=== PATIENT | male | born 1985 | race Caucasian/White ===

== ENCOUNTER 2016-11-19 16:49 | Emergency (ER) | payer SELFPAY ==
--- NOTE | 2016-11-19 19:55 | ED CLINICAL REPORT ---
Clinical Report - Physicians/Mid Levels [facility] [address] [place] [address] 11/19/2016 16:52 Patient: VALENTIN DOMINIQUE JR Time Seen: 17:10. Arrived- By private vehicle. Historian- patient. HISTORY OF PRESENT ILLNESS Chief Complaint: LOWER EXTREMITY PAIN. Severity is described as being .it has become recently worse. The quality is noted to be aching, "pain" and similar to prior episodes. This started several days ago. It was abrupt in onset and has been constant. Symptoms located in the area of the right leg. The patient has had redness and swelling. Patient denies a recent injury. Similar symptoms previously: Many times. Diagnosis: deep vein thrombosis (pulmonary embolism). ( Factor V Leiden deficiency). REVIEW OF SYSTEMS No chills, fever, sweats, chest pain or cough. No difficulty breathing, palpitations, abdominal pain, constipation or diarrhea. No nausea, vomiting or urinary problems. All systems otherwise negative, except as recorded above. PAST HISTORY Problems: DVT - Deep Venous Thrombosis. Pulmonary Embolism. Asthma. Factor V Leiden mutation. Additional Surgeries: Adenoidectomy. Appendectomy. IVC Filter. Tonsillectomy. Tympanostomy Tubes. Medications: None. Allergies: Dilaudid. ("ONLY the tablet form") Penicillins. SOCIAL HISTORY Current every day heavy tobacco smoker (cigarette)- less than 1 pack per day. Occasional alcohol use. History of drug use: marijuana. FAMILY HISTORY Denies family medical history. ADDITIONAL NOTES The nursing notes have been reviewed. PHYSICAL EXAM Vital Signs: 11/19/2016 17:01 BP: 125/72. HR: 66. RR: 16. O2 saturation: 98%. Temp: 98.1 F. Have been reviewed. Appearance: Alert. Eyes: Pupils equal, round and reactive to light. ENT: Pharynx normal. Neck: Neck supple. CVS: Normal heart rate and rhythm. Heart sounds normal. Respiratory: No respiratory distress. Breath sounds normal. Abdomen: Soft and nontender. No organomegaly. Extremities: Right leg: mild swelling. Bilateral mild pitting edema of the lower extremities involving both feet, both ankles and both lower legs. Moderate right-sided calf tenderness. LABS, X-RAYS, AND EKG Lower Extremity Sonography: R LE occluded tibial veins extending up to but sparing the popliteal vein. LLE femoral vein scarring - chronic with L popliteal residual clot. Laboratory Tests: CBC w Diff: (DERICK: 11/19/2016 17:30) ( [facility] 11/19/2016 17:39) Final results Test Result Flag Units (Reference) WHITE BLOOD COUNT 9.7 K/uL (4.5-11.5) RED BLOOD COUNT 5.15 M/uL (4.50-5.90) HEMOGLOBIN 15.2 gm/dL (13.5-17.5) HEMATOCRIT 45.7 % (41.0-53.0) MEAN CELL VOLUME 89 fL (80-100) MEAN CORPUSCULAR HGB 30 pg (26-34) MEAN CORPUSCULAR HGB CONC 33 g/dL (31-37) RED CELL DISTRIBUTION WIDTH 13.3 % (11.6-14.8) PLATELET COUNT 201 K/uL (150-400) LYMPH % 26.5 % (25-40) MONO % 3.4 % (3-14) GRANULOCYTE % 70.1 PT with INR: (DERICK: 11/19/2016 17:30) ( [facility] 11/19/2016 17:51) Final results Test Result Flag Units (Reference) INR 0.9 (0.8-1.2) Low Intensity Therapy: INR 1.5-2.0 PT range 18.5-23.1Mod.Intensity Therapy: INR 2.0-3.0 PT range 23.1-31.5High Intensity Therapy: INR 2.5-3.5 PT range 27.4-35.5High Intensity Therapy 2: INR 3.0-4.0 PT range 31.5-39.3 APTT 26 SECONDS (24-34) CMP: (DERICK: 11/19/2016 17:30) ( [facility] 11/19/2016 17:55) Final results Test Result Flag Units (Reference) GLUCOSE 110 mg/dL (70-110) BUN 11 mg/dL (7-18) CREATININE 1.0 mg/dL (0.6-1.3) Estimated GFR >60 mL/min Estimated GFR- >60 mL/min Note: Persistent reduction over 3 months in eGFR<60 mL/min/1.73 m2 defines CKD. Patients with eGFR values>=60 mL/min/1.73 m2 may also have CKD if evidence ofpersistent proteinuria. Additional information may be foundat www.kidney.org. SODIUM 144 mmol/L (136-145) POTASSIUM 3.8 mmol/L (3.5-5.1) CHLORIDE 109 H mmol/L (98-107) CARBON DIOXIDE 26 mmol/L (21-32) CALCIUM 8.5 mg/dL (8.5-10.1) TOTAL PROTEIN 7.0 g/dL (6.4-8.2) ALBUMIN 3.7 g/dL (3.3-5.0) BILIRUBIN, TOTAL 1.1 H mg/dL (0.0-1.0) ALKALINE PHOSPHATASE 61 U/L (46-116) AST (SGOT) 17 U/L (15-37) ALT (SGPT) 41 U/L (12-78) LIPASE 129 U/L (73-393) AMYLASE 29 U/L (25-115) . PROGRESS AND PROCEDURES Course of Care: Patient is stable. Consult obtained. Dr. Hutson the on-call doc at the [facility]. We reviewed the patient's history and physical examination findings. She says that their office will contact him on Monday and make arrangements for his follow-up both with a primary care provider and at the anticoagulation clinic. Case discussed. Phone consult only. Patient/family counseled. Old medical records ordered. Old records unavailable. Disposition: Discharged. Condition: stable. CLINICAL IMPRESSION Acute and chronic deep venous thrombosis of the right lower extremity and left lower extremity. INSTRUCTIONS No driving or operating machinery while taking medication. Sedative medication was given during your visit. (You should receive a call from Dr. Perez's office on Monday to schedule follow-up. If you have not heard from them by early afternoon, please call them at the following number: Hung Perez MD [facility] [place] [phone]). Warnings: Further evaluation is necessary. GENERAL WARNINGS: Return or contact your physician immediately if your condition worsens or changes unexpectedly, if not improving as expected, or if other problems arise. Prescription Medications: Hydrocodone/APAP 5mg / 325mg: take 1-2 orally every 6 hours as needed for pain. Dispense ten (10). No refill. Lovenox 120 mg SQ. Administer every 12 hours for 5 days. Dispense nine (9) pre-filled syringes. No refills. Coumadin 5 mg: take 1 tablet orally every 24 hours. Dispense five (5). No refills. Substitution is permissible. Follow-up: Follow up with your doctor Dr. Ana Cordon. Understanding of the discharge instructions verbalized by patient. (Electronically signed by Carson Baires MD 11/19/2016 21:59)
--- NOTE | 2016-11-19 19:55 | ED CLINICAL REPORT ---
Clinical Report - Physicians/Mid Levels [facility] [address] [place] [address] 11/19/2016 16:52 Patient: VALENTIN DOMINIQUE JR Time Seen: 17:10. Arrived- By private vehicle. Historian- patient. HISTORY OF PRESENT ILLNESS Chief Complaint: LOWER EXTREMITY PAIN. Severity is described as being .it has become recently worse. The quality is noted to be aching, "pain" and similar to prior episodes. This started several days ago. It was abrupt in onset and has been constant. Symptoms located in the area of the right leg. The patient has had redness and swelling. Patient denies a recent injury. Similar symptoms previously: Many times. Diagnosis: deep vein thrombosis (pulmonary embolism). ( Factor V Leiden deficiency). REVIEW OF SYSTEMS No chills, fever, sweats, chest pain or cough. No difficulty breathing, palpitations, abdominal pain, constipation or diarrhea. No nausea, vomiting or urinary problems. All systems otherwise negative, except as recorded above. PAST HISTORY Problems: DVT - Deep Venous Thrombosis. Pulmonary Embolism. Asthma. Factor V Leiden mutation. Additional Surgeries: Adenoidectomy. Appendectomy. IVC Filter. Tonsillectomy. Tympanostomy Tubes. Medications: None. Allergies: Dilaudid. ("ONLY the tablet form") Penicillins. SOCIAL HISTORY Current every day heavy tobacco smoker (cigarette)- less than 1 pack per day. Occasional alcohol use. History of drug use: marijuana. FAMILY HISTORY Denies family medical history. ADDITIONAL NOTES The nursing notes have been reviewed. PHYSICAL EXAM Vital Signs: 11/19/2016 17:01 BP: 125/72. HR: 66. RR: 16. O2 saturation: 98%. Temp: 98.1 F. Have been reviewed. Appearance: Alert. Eyes: Pupils equal, round and reactive to light. ENT: Pharynx normal. Neck: Neck supple. CVS: Normal heart rate and rhythm. Heart sounds normal. Respiratory: No respiratory distress. Breath sounds normal. Abdomen: Soft and nontender. No organomegaly. Extremities: Right leg: mild swelling. Bilateral mild pitting edema of the lower extremities involving both feet, both ankles and both lower legs. Moderate right-sided calf tenderness. LABS, X-RAYS, AND EKG Lower Extremity Sonography: R LE occluded tibial veins extending up to but sparing the popliteal vein. LLE femoral vein scarring - chronic with L popliteal residual clot. Laboratory Tests: CBC w Diff: (DERICK: 11/19/2016 17:30) ( [facility] 11/19/2016 17:39) Final results Test Result Flag Units (Reference) WHITE BLOOD COUNT 9.7 K/uL (4.5-11.5) RED BLOOD COUNT 5.15 M/uL (4.50-5.90) HEMOGLOBIN 15.2 gm/dL (13.5-17.5) HEMATOCRIT 45.7 % (41.0-53.0) MEAN CELL VOLUME 89 fL (80-100) MEAN CORPUSCULAR HGB 30 pg (26-34) MEAN CORPUSCULAR HGB CONC 33 g/dL (31-37) RED CELL DISTRIBUTION WIDTH 13.3 % (11.6-14.8) PLATELET COUNT 201 K/uL (150-400) LYMPH % 26.5 % (25-40) MONO % 3.4 % (3-14) GRANULOCYTE % 70.1 PT with INR: (DERICK: 11/19/2016 17:30) ( [facility] 11/19/2016 17:51) Final results Test Result Flag Units (Reference) INR 0.9 (0.8-1.2) Low Intensity Therapy: INR 1.5-2.0 PT range 18.5-23.1Mod.Intensity Therapy: INR 2.0-3.0 PT range 23.1-31.5High Intensity Therapy: INR 2.5-3.5 PT range 27.4-35.5High Intensity Therapy 2: INR 3.0-4.0 PT range 31.5-39.3 APTT 26 SECONDS (24-34) CMP: (DERICK: 11/19/2016 17:30) ( [facility] 11/19/2016 17:55) Final results Test Result Flag Units (Reference) GLUCOSE 110 mg/dL (70-110) BUN 11 mg/dL (7-18) CREATININE 1.0 mg/dL (0.6-1.3) Estimated GFR >60 mL/min Estimated GFR- >60 mL/min Note: Persistent reduction over 3 months in eGFR<60 mL/min/1.73 m2 defines CKD. Patients with eGFR values>=60 mL/min/1.73 m2 may also have CKD if evidence ofpersistent proteinuria. Additional information may be foundat www.kidney.org. SODIUM 144 mmol/L (136-145) POTASSIUM 3.8 mmol/L (3.5-5.1) CHLORIDE 109 H mmol/L (98-107) CARBON DIOXIDE 26 mmol/L (21-32) CALCIUM 8.5 mg/dL (8.5-10.1) TOTAL PROTEIN 7.0 g/dL (6.4-8.2) ALBUMIN 3.7 g/dL (3.3-5.0) BILIRUBIN, TOTAL 1.1 H mg/dL (0.0-1.0) ALKALINE PHOSPHATASE 61 U/L (46-116) AST (SGOT) 17 U/L (15-37) ALT (SGPT) 41 U/L (12-78) LIPASE 129 U/L (73-393) AMYLASE 29 U/L (25-115) . PROGRESS AND PROCEDURES Course of Care: Patient is stable. Consult obtained. Dr. Hutson the on-call doc at the [facility]. We reviewed the patient's history and physical examination findings. She says that their office will contact him on Monday and make arrangements for his follow-up both with a primary care provider and at the anticoagulation clinic. Case discussed. Phone consult only. Patient/family counseled. Old medical records ordered. Old records unavailable. Disposition: Discharged. Condition: stable. CLINICAL IMPRESSION Acute and chronic deep venous thrombosis of the right lower extremity and left lower extremity. INSTRUCTIONS No driving or operating machinery while taking medication. Sedative medication was given during your visit. (You should receive a call from Dr. Perez's office on Monday to schedule follow-up. If you have not heard from them by early afternoon, please call them at the following number: Hung Perez MD [facility] [place] [phone]). Warnings: Further evaluation is necessary. GENERAL WARNINGS: Return or contact your physician immediately if your condition worsens or changes unexpectedly, if not improving as expected, or if other problems arise. Prescription Medications: Hydrocodone/APAP 5mg / 325mg: take 1-2 orally every 6 hours as needed for pain. Dispense ten (10). No refill. Lovenox 120 mg SQ. Administer every 12 hours for 5 days. Dispense nine (9) pre-filled syringes. No refills. Coumadin 5 mg: take 1 tablet orally every 24 hours. Dispense five (5). No refills. Substitution is permissible. Follow-up: Follow up with your doctor Dr. Ana Cordon. Understanding of the discharge instructions verbalized by patient. (Electronically signed by Carson Baires MD 11/19/2016 21:59)
--- NOTE | 2016-11-19 19:55 | ED ORDER SUMMARY ---
..... Patient: VALENTIN DOMINIQUE JR OrderSheet [facility] VisitID: [id number] [place] [address] 31y, M Registration Date/Time: 11/19/2016 ORDER SHEET Weight: 117.9 kg (stated) Allergies: Penicillins, Dilaudid GENERAL ORDERS: US Venous Bilat Urgent (17:11 11/19/2016 Vasile WHEATLEY) (Ack 17:13 Savana) (19:47 Elizabeth) CBC w Diff Urgent (17:11 11/19/2016 Vasile WHEATLEY) (Ack 17:13 Svaana) (17:33 MWinterer R.N.) CMP Urgent (17:11/19/2016 Vasile WHEATLEY) (Ack 17:13 Savana) (17:33 MWinterer R.N.) PT with INR Urgent (17:11 11/19/2016 Vasile WHEATLEY) (Ack 17:13 Savana) (17:33 MWinterer R.N.) PTT Urgent (17:11/19/2016 Vasile WHEATLEY) (Ack 17:13 Savana) (17:33 MWinterer R.N.) Amylase Urgent (17:11 11/19/2016 Vasile WHEATLEY) (Ack 17:13 Savana) (17:33 MWinterer R.N.) Lipase Urgent (17:11/19/2016 Vasile WHEATLEY) (Ack 17:13 Savana) (17:33 MWinterer R.N.) MEDICATION ORDERS: Ultram PO 100 mg (NOW) (18:23 11/19/2016 Vasile WHEATLEY) (Ack 18:26 SReitz R.N.) (18:29 KWilliams R.N.) Lovenox Subcut 120 mg (HIGH ALERT MEDICATION, NOW) (19:48 11/19/2016 Vasile WHEATLEY) (Ack 19:52 HSoule) (Cancelled: Patient [id number] HSoule) IV FLUIDS: IV Saline Lock (17:11 11/19/2016 Vasile WHEATLEY) (Ack 17:32 MWinterer R.N.) (17:38 KWilliams R.N.) ORDER SHEET NOTES: [Electronically signed by Dea Flynn (20:35 11/19/2016)] [Electronically signed by Carson Baires MD (21:59 11/19/2016)] [Electronically locked/signed by Dea Flynn (20:35 11/19/2016)]
--- NOTE | 2016-11-19 19:55 | ED NURSING NOTES ---
Clinical Report - Nurses [facility] [address] 11/19/2016 16:52 Patient: VALENTIN DOMINIQUE JR TRIAGE Triage time 16:56. Acuity: LEVEL 3. Chief Complaint: RIGHT LOWER EXTREMITY PAIN, SWELLING, NUMBNESS and TINGLING. Alert. No acute distress. ADRIENNE COMA SCORE: [place] Coma Scale: 15- eyes open spontaneously (4); best verbal response- oriented x 4 (5); best motor response- obeys commands (6). --17:07 Belen Prieto R.N. 17:01 11/19/16. BP: 125/72. HR: 66. RR: 16. O2 saturation: 98% on room air. Temp: 98.1 F (oral). Pain level now 8/10. --17:07 Belen Prieto R.N. 19:08 11/19/16. --19:08 Belen Prieto R.N. Weight: 117.9 kg stated. Height/Length: 72 inches Per Patient. BMI: 35.3. --17:01 Belen Prieto R.N. Medications None. --17:04 Belen Prieto R.N. Allergies Penicillins. --17:05 Belen Prieto R.N. Dilaudid. ("ONLY the tablet form") --17:05 Belen Prieto R.N. History Historian: patient. Primary physician (no pcp). ( R calf pain beginning monday. long history of clots including a left sided DVT, and numerous PEs. Pt has stopped taking his coumadin since moving here from [place]. Last coumadin dose in September.). No injury occurred. This occurred (3 days ago). Treatment [employer]: (naproxen). SOCIAL HX: Heavy tobacco smoker (cigarette)- less than 1 pack per day. Occasional alcohol use. History of drug use: marijuana. FALL RISK ASSESSMENT: Fall risk assessment completed. No fall risk identified. NUTRITIONAL RISK ASSESSMENT: The nutritional risk assessment revealed no deficiencies. FUNCTIONAL ASSESSMENT: Functional assessment: no impairments noted. LEARNING NEEDS ASSESSMENT: The learning needs assessment revealed no barriers. SKIN INTEGRITY ASSESSMENT: Skin integrity risk assessment completed. No skin integrity risk identified. --17:07 Belen Prieto R.N. SOCIAL HX: ( pt states he took a leftover lovenox injection last night). --19:08 Belen Prieto R.N. PROBLEMS: DVT - Deep Venous Thrombosis. Pulmonary Embolism. Asthma. Factor V Leiden mutation. --17:07 Belen Prieto R.N. ADDITIONAL SURGERIES: Adenoidectomy. Appendectomy. IBC filter. Tonsillectomy. Tympanostomy Tubes. --17:07 Belen Prieto R.N. Interventions ID band on patient. To treatment room. --17:07 Belen Prieto R.N. PHYSICAL ASSESSMENT 17:08 11/19/16. Ambulatory to room. GENERAL / NEURO / PSYCH: Oriented X 4. Alert. Appears in pain. CVS: Pulses: right dorsalis pedis 3+ and left dorsalis pedis 3+. EXTREMITIES: Extremity pulses are within normal limits. Neuro-vascular status intact to the extremity. Right leg. SKIN: Skin intact. Skin is warm and dry. --17:08 Belen Prieto R.N. NURSING PROGRESS NOTES The plan of care for this patient has been created. Patient gowned. Call light placed in reach. Bed placed in lowest position. Brakes of bed on. --17:08 Belen Prieto R.N. 17:30 11/19/2016 Site #1 started via IV in the right antecubital space with an 18g angiocath, with aseptic technique and good blood return; one attempt. Blood drawn: rainbow set. Labeled in the presence of the patient and sent to the lab. Saline lock flushed with 10 mL saline. --17:38 Belen Prieto R.N. 18:24 11/19/2016 Ultram (TraMADol HCl) PO Tablets 100 mg given. Allergies verified, confirmed 5 rights and sedative warning given to the patient and patient's family. --18:29 Belen Prieto R.N. The patient is calm and resting quietly. ( ultrasound in room). --18:32 Belen Prieto R.N. 19:21 11/19/16. ( spouse coming out of room, states, "We called for you, you need to come speak with my ." This RN went into room, patient states, "I was too painful to walk to the bathroom. I need stronger pain medications." Explained POC to patient and that we are waiting for ultrasound results from radiologist. 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 He needs stronger medications." MD notified.). --19:21 Belen Prieto R.N. ( Writing RN into room to assume patient care. Patient asking for stronger pain medication in IV. Patient and updated that provider is arranging for follow up care and will be in shortly to speak to them. MD notified, no new orders at this time.). --19:37 Dea Flynn ( RN to room to administer Lovenox. Patient refusing medication, states " I will just take it at home". RN informed patient of importance of medication for his condition. Patient states, " SO is the doctor just not coming in or what?". Patient spouse informed that the provider will be in at his soonest availability and that he was in a patient room that required his attention. Provider notified.). --20:00 Dea Flynn 20:15 11/19/16. ( Provider and RN at bedside discussing discharge instructions to patient. After provider has left the room patient states that he only wants the hydrocodone on the script as he cannot afford to refill the other medications. Patient asks RN to speak to doctor and have other medications removed from script. Provider notified and insists patient understand importance of medication compliance with anticoagulation and encourage patient to fill complete script. Patient on discharge states, " I don't even want that paperwork then, we are done".). --20:19 Dea Flynn. DISPOSITION / DISCHARGE 20:19 11/19/16. BP: 132/78. HR: 60. RR: 20. O2 saturation: 97% on room air. Temp: deferred. Pain level now: 01/12. --20:24 Dea Flynn 20:15 11/19/2016 Site #1 removed upon discharge. Catheter intact. Bandaid applied. --20:24 Dea Flynn 20:20 11/19/16. Condition at departure: stable. The goals identified in the patient's plan of care were met. Learning barriers present. Ability to learn limited by poor cooperation. Discharge instructions provided and reviewed with the patient and spouse. Reviewed warnings (Do not drive while taking sedative medications). Reviewed medication(s) side effects, precautions, dosing and course information. Prescription(s) given to the patient. Reviewed need for increased fluid intake. Patient and spouse verbalized understanding. Written instructions provided in Belarusian. ( Follow up with [facility] Monday. You should receive a call from them on Monday, if you do not hear from them call and arrange follow up. Take medications as prescribed. Instructed patient on importance of him being anti-coagulated to protect from clots. Elevate your legs. Patient and spouse verbalized understanding and had no additional questions at this time.). The patient was discharged by the physician. He was discharged home and accompanied by spouse. He left the Emergency Department ambulatory and via private vehicle. Spouse driving. FALL RISK ASSESSMENT: Fall risk assessment completed. No fall risk identified. --20:24 Dea Flynn. Locked/Released at 11/19/2016 20:35 by Dea Flynn,
--- NOTE | 2016-11-19 19:55 | ED ORDER SUMMARY ---
..... Patient: VALENTIN DOMINIQUE JR OrderSheet [facility] VisitID: [id number] [place] [address] 31y, M Registration Date/Time: 11/19/2016 ORDER SHEET Weight: 117.9 kg (stated) Allergies: Penicillins, Dilaudid GENERAL ORDERS: US Venous Bilat Urgent (17:11 11/19/2016 Vasile WHEATLEY) (Ack 17:13 Savana) (19:47 Elizabeth) CBC w Diff Urgent (17:11 11/19/2016 Vasile WHEATLEY) (Ack 17:13 Savana) (17:33 MWinterer R.N.) CMP Urgent (17:11/19/2016 Vasile WHEATLEY) (Ack 17:13 Savana) (17:33 MWinterer R.N.) PT with INR Urgent (17:11 11/19/2016 Vasile WHEATLEY) (Ack 17:13 Savana) (17:33 MWinterer R.N.) PTT Urgent (17:11/19/2016 Vasile WHEATLEY) (Ack 17:13 Savana) (17:33 MWinterer R.N.) Amylase Urgent (17:11 11/19/2016 Vasile WHEATLEY) (Ack 17:13 Savana) (17:33 MWinterer R.N.) Lipase Urgent (17:11/19/2016 Vasile WHEATLEY) (Ack 17:13 Savana) (17:33 MWinterer R.N.) MEDICATION ORDERS: Ultram PO 100 mg (NOW) (18:23 11/19/2016 Vasile WHEATLEY) (Ack 18:26 SReitz R.N.) (18:29 KWilliams R.N.) Lovenox Subcut 120 mg (HIGH ALERT MEDICATION, NOW) (19:48 11/19/2016 Vasile WHEATLEY) (Ack 19:52 HSoule) (Cancelled: Patient [id number] HSoule) IV FLUIDS: IV Saline Lock (17:11 11/19/2016 Vasile WHEATLEY) (Ack 17:32 MWinterer R.N.) (17:38 KWilliams R.N.) ORDER SHEET NOTES: [Electronically signed by Dea Flynn (20:35 11/19/2016)] [Electronically signed by Carson Baires MD (21:59 11/19/2016)] [Electronically locked/signed by Dea Flynn (20:35 11/19/2016)]
--- NOTE | 2016-11-19 20:05 | DIAGNOSTIC IMAGING REPORT ---
PROCEDURE: US VENOUS - BILATERAL EXT INDICATION: SWELLING TECHNIQUE: Color Doppler duplex imaging of the deep and superficial venous system without and with compression. COMPARISON: None. FINDINGS: RIGHT LOWER EXTREMITY: Occluded posterior tibial veins. Deep and superficial venous system is otherwise unremarkable. LEFT LOWER EXTREMITY: Atretic left superficial femoral vein. Nonocclusive thrombus in the popliteal Remainder of the deep and superficial venous system is unremarkable. . IMPRESSION: 1. Occluded right posterior tibial veins 2. Nonocclusive left popliteal vein thrombus
--- NOTE | 2016-11-19 22:00 | ED MAR SUMMARY ---
..... Medication Administration Record [facility] [address] [place] [address] Patient: VALENTIN DOMINIQUE Visit ID: [id number] 31y, M Weight: 117.9 kg Height/Length: 72 in BMI: 35.3 ALLERGIES: Dilaudid, Penicillins Given 18:24 11/19/2016 Belen Prieto RWyatt Medication Administered: ULTRAM [PO] (TRAMADOL HCL), Dose: 100 mg Tablets PO. Medication Ordered: Ultram PO 100 mg (NOW).
--- NOTE | 2016-11-19 22:00 | ED DISCHARGE INSTRUCTIONS ---
Patient: VALENTIN DOMINIQUE JR General Instructions [facility] VisitID: [id number] [place] [address] 31y, M Registration Date/Time: 11/19/2016 Acute and chronic deep venous thrombosis of the right lower extremity and left lower extremity. INSTRUCTIONS No driving or operating machinery while taking medication. Sedative medication was given during your visit. (You should receive a call from Dr. Perez's office on Monday to schedule follow-up. If you have not heard from them by early afternoon, please call them at the following number: Hung Perez MD [facility] [phone]). Warnings: Further evaluation is necessary. GENERAL WARNINGS: Return or contact your physician immediately if your condition worsens or changes unexpectedly, if not improving as expected, or if other problems arise. Prescription Medications: Hydrocodone/APAP 5mg / 325mg: take 1-2 orally every 6 hours as needed for pain. Dispense ten (10). No refill. Lovenox 120 mg SQ. Administer every 12 hours for 5 days. Dispense nine (9) pre-filled syringes. No refills. Coumadin 5 mg: take 1 tablet orally every 24 hours. Dispense five (5). No refills. Substitution is permissible. Follow-up: [facility] Understanding of the discharge instructions verbalized by patient. ADDITIONAL INFORMATION Deep Vein Thrombosis Deep Vein Thrombosis (DVT) means there is a blood clot in a deep vein of the leg. This may cause redness, swelling, warmth and pain of the leg. If the blood clot grows larger, a piece may break off and go to the lungs (pulmonary embolus) or to the brain (stroke). Factors that increase risk of a DVT include: overweight, smoking, use of estrogen replacement therapy. Prolonged periods without movement (such as long distance travel, wearing a fracture cast, and prolonged bed rest after surgery or during an illness) also increases the risk of a DVT. Home Care: Stay off the affected leg as much as possible during the next week. When sitting or lying down, keep the leg elevated. Compression stockings may be advised to improve blood flow in the lower legs. When resting, move your ankles, toes and knees frequently to stimulate blood flow. You will be prescribed an anti-coagulant medicine (pills or shots). Take it exactly as directed. Follow Up with your doctor as advised. NOTE: A radiologist will review any X-rays that were taken. We will notify you of any new findings that may affect your care. Get Prompt Medical Attention if any of the following occur: Shortness of breath or painful breathing Chest pain, repeated cough or coughing up blood Fever of 100.4F (38C) or higher, or as directed by your healthcare provider Increasing swelling or increasing pain in the leg Spreading redness Unexpected bleeding (nose, gums, cuts, urinary tract, vagina, rectum) Hydrocodone Bitartrate, Acetaminophen Oral tablet What is this medicine? ACETAMINOPHEN; HYDROCODONE (a set a KATERINA indra fen; katrin droe KOE done) is a pain reliever. It is used to treat mild to moderate pain. How should I use this medicine? Take this medicine by mouth. Swallow it with a full glass of water. Follow the directions on the prescription label. If the medicine upsets your stomach, take the medicine with food or milk. Do not take more than you are told to take. Talk to your dog hair clipper regarding the use of this medicine in children. This medicine is not approved for use in children. What side effects may I notice from receiving this medicine? Side effects that you should report to your doctor or health childcare aide as soon as possible: allergic reactions like skin rash, itching or hives, swelling of the face, lips, or tongue breathing problems confusion feeling faint or lightheaded, falls stomach pain yellowing of the eyes or skin Side effects that usually do not require medical attention (report to your doctor or health childcare aide if they continue or are bothersome): nausea, vomiting stomach upset What may interact with this medicine? alcohol antihistamines isoniazid medicines for depression, anxiety, or psychotic disturbances medicines for sleep muscle relaxants naltrexone narcotic medicines (opiates) for pain phenobarbital ritonavir tramadol What if I miss a dose? If you miss a dose, take it as soon as you can. If it is almost time for your next dose, take only that dose. Do not take double or extra doses. Where should I keep my medicine? Keep out of the reach of children. This medicine can be abused. Keep your medicine in a safe place to protect it from theft. Do not share this medicine with anyone. Selling or giving away this medicine is dangerous and against the law. Store at room temperature between 15 and 30 degrees C (59 and 86 degrees F). Protect from light. Keep container tightly closed. Throw away any unused medicine after the expiration date. Discard unused medicine and used packaging carefully. Pets and children can be harmed if they find used or lost packages. What should I tell my health care provider before I take this medicine? They need to know if you have any of these conditions: brain tumor Crohn's disease, inflammatory bowel disease, or ulcerative colitis drink more than 3 alcohol-containing drinks per day drug abuse or addiction head injury heart or circulation problems kidney disease or problems going to the bathroom liver disease lung disease, asthma, or breathing problems an unusual or allergic reaction to acetaminophen, hydrocodone, other opioid analgesics, other medicines, foods, dyes, or preservatives or trying to get breast-feeding What should I watch for while using this medicine? Tell your doctor or health childcare aide if your pain does not go away, if it gets worse, or if you have new or a different type of pain. You may develop tolerance to the medicine. Tolerance means that you will need a higher dose of the medicine for pain relief. Tolerance is normal and is expected if you take the medicine for a long time. Do not suddenly stop taking your medicine because you may develop a severe reaction. Your body becomes used to the medicine. This does NOT mean you are addicted. Addiction is a behavior related to getting and using a drug for a non-medical reason. If you have pain, you have a medical reason to take pain medicine. Your doctor will tell you how much medicine to take. If your doctor wants you to stop the medicine, the dose will be slowly lowered over time to avoid any side effects. You may get drowsy or dizzy when you first start taking the medicine or change doses. Do not drive, use machinery, or do anything that may be dangerous until you know how the medicine affects you. Stand or sit up slowly. There are different types of narcotic medicines (opiates) for pain. If you take more than one type at the same time, you may have more side effects. Give your health care provider a list of all medicines you use. Your doctor will tell you how much medicine to take. Do not take more medicine than directed. Call emergency for help if you have problems breathing. The medicine will cause constipation. Try to have a bowel movement at least every 2 to 3 days. If you do not have a bowel movement for 3 days, call your doctor or health childcare aide. Too much acetaminophen can be very dangerous. Do not take Tylenol (acetaminophen) or medicines that contain acetaminophen with this medicine. Many non-prescription medicines contain acetaminophen. Always read the labels carefully. Enoxaparin Sodium (Porcine) Solution for injection What is this medicine? ENOXAPARIN (ee nox a PA rin) is used after knee, hip, or abdominal surgeries to prevent blood clotting. It is also used to treat existing blood clots in the lungs or in the veins. How should I use this medicine? This medicine is for injection under the skin. It is usually given by a health-childcare aide. You or a family member may be trained on how to give the injections. If you are to give yourself injections, make sure you understand how to use the syringe, measure the dose if necessary, and give the injection. To avoid bruising, do not rub the site where this medicine has been injected. Do not take your medicine more often than directed. Do not stop taking except on the advice of your doctor or health childcare aide. Make sure you receive a puncture-resistant container to dispose of the needles and syringes once you have finished with them. Do not reuse these items. Return the container to your doctor or health childcare aide for proper disposal. Talk to your dog hair clipper regarding the use of this medicine in children. Special care may be needed. What side effects may I notice from receiving this medicine? Side effects that you should report to your doctor or health childcare aide as soon as possible: allergic reactions like skin rash, itching or hives, swelling of the face, lips, or tongue dark urine feeling faint or lightheaded, falls fever heavy menstrual bleeding signs and symptoms of bleeding such as bloody or black, tarry stools; red or dark-brown urine; spitting up blood or brown material that looks like coffee grounds; red spots on the skin; unusual bruising or bleeding from the eye, gums, or nose signs and symptoms of a blood clot such as breathing problems; changes in vision; chest pain; severe, sudden headache; pain, swelling, warmth in the leg; trouble speaking; sudden numbness or weakness of the face, arm, or leg Side effects that usually do not require medical attention (report to your doctor or health childcare aide if they continue or are bothersome): pain or irritation at the injection site What may interact with this medicine? Do not take this medicine with any of the following medications: -aspirin and aspirin-like medicines -heparin -mifepristone -palifermin -warfarin This medicine may also interact with the following medications: -cilostazol -clopidogrel -dipyridamole -NSAIDs, medicines for pain and inflammation, like ibuprofen or naproxen -sulfinpyrazone -ticlopidine What if I miss a dose? If you miss a dose, take it as soon as you can. If it is almost time for your next dose, take only that dose. Do not take double or extra doses. Where should I keep my medicine? Keep out of the reach of children. Store at room temperature between 15 and 30 degrees C (59 and 86 degrees F). Do not freeze. If your injections have been specially prepared, you may need to store them in the refrigerator. Ask your pharmacist. Throw away any unused medicine after the expiration date. What should I tell my health care provider before I take this medicine? They need to know if you have any of these conditions: bleeding disorders, hemorrhage, or hemophilia infection of the heart or heart valves kidney or liver disease previous stroke prosthetic heart valve recent surgery or delivery of a baby ulcer in the stomach or intestine, diverticulitis, or other bowel disease an unusual or allergic reaction to enoxaparin, heparin, pork or pork products, other medicines, foods, dyes, or preservatives or trying to get breast-feeding What should I watch for while using this medicine? Visit your doctor or health childcare aide for regular checks on your progress. Your condition will be monitored carefully while you are receiving this medicine. If you are going to have surgery, tell your doctor or health childcare aide that you are taking this medicine. Do not stop taking this medicine without first talking to your doctor. Be sure to refill your prescription before you run out of medicine. Avoid sports and activities that might cause injury while you are using this medicine. Severe falls or injuries can cause unseen bleeding. Be careful when using sharp tools or knives. Consider using an electric razor. Take special care brushing or flossing your teeth. Report any injuries, bruising, or red spots on the skin to your doctor or health childcare aide. Warfarin Sodium Oral tablet What is this medicine? WARFARIN (WAR far in) is an anticoagulant. It is used to treat or prevent clots in the veins, arteries, lungs, or heart. How should I use this medicine? Take this medicine by mouth with a glass of water. Follow the directions on the prescription label. You can take this medicine with or without food. Take your medicine at the same time each day. Do not take it more often than directed. Do not stop taking except on your doctor's advice. Stopping this medicine may increase your risk of a blood clot. Be sure to refill your prescription before you run out of medicine. If your doctor or healthcare professional calls to change your dose, write down the dose and any other instructions. Always read the dose and instructions back to him or her to make sure you understand them. Tell your doctor or healthcare professional what strength of tablets you have on hand. Ask how many tablets you should take to equal your new dose. Write the date on the new instructions and keep them near your medicine. If you are told to stop taking your medicine until your next blood test, call your doctor or healthcare professional if you do not hear anything within 24 hours of the test to find out your new dose or when to restart your prior dose. A special MedGuide will be given to you by the pharmacist with each prescription and refill. Be sure to read this information carefully each time. Talk to your dog hair clipper regarding the use of this medicine in children. Special care may be needed. What side effects may I notice from receiving this medicine? Side effects that you should report to your doctor or health childcare aide as soon as possible: back pain chills dizziness fever heavy menstrual bleeding or vaginal bleeding painful, blue, or purple toes painful, prolonged erection signs and symptoms of bleeding such as bloody or black, tarry stools; red or dark-brown urine; spitting up blood or brown material that looks like coffee grounds; red spots on the skin; unusual bruising or bleeding from the eye, gums, or nose-skin rash, itching or skin damage stomach pain unusually weak or tired yellowing of skin or eyes Side effects that usually do not require medical attention (report to your doctor or health childcare aide if they continue or are bothersome): diarrhea hair loss What may interact with this medicine? Do not take this medicine with any of the following medications: agents that prevent or dissolve blood clots aspirin or other salicylates danshen dextrothyroxine mifepristone Sleepy Eye's Wort red yeast rice This medicine may also interact with the following medications: acetaminophen agents that lower cholesterol alcohol allopurinol amiodarone antibiotics or medicines for treating bacterial, fungal or viral infections azathioprine barbiturate medicines for inducing sleep or treating seizures certain medicines for diabetes certain medicines for heart rhythm problems certain medicines for high blood pressure chloral hydrate cisapride disulfiram female hormones, including contraceptive or control pills general anesthetics herbal or dietary products like garlic, ginkgo, ginseng, green tea, or kava kava influenza virus vaccine male hormones medicines for mental depression or psychosis medicines for some types of cancer medicines for stomach problems methylphenidate NSAIDs, medicines for pain and inflammation, like ibuprofen or naproxen propoxyphene quinidine, quinine raloxifene seizure or epilepsy medicine like carbamazepine, phenytoin, and valproic acid steroids like cortisone and prednisone tamoxifen thyroid medicine tramadol vitamin c, vitamin e, and vitamin K zafirlukast zileuton What if I miss a dose? It is important not to miss a dose. If you miss a dose, call your healthcare provider. Take the dose as soon as possible on the same day. If it is almost time for your next dose, take only that dose. Do not take double or extra doses to make up for a missed dose. Where should I keep my medicine? Keep out of the reach of children. Store at room temperature between 15 and 30 degrees C (59 and 86 degrees F). Protect from light. Throw away any unused medicine after the expiration date. Do not flush down the toilet. What should I tell my health care provider before I take this medicine? They need to know if you have any of these conditions: alcoholism anemia bleeding disorders cancer diabetes heart disease high blood pressure history of bleeding in the gastrointestinal tract history of stroke or other brain injury or disease kidney or liver disease protein C deficiency protein S deficiency psychosis or dementia recent injury, recent or planned surgery or procedure an unusual or allergic reaction to warfarin, other medicines, foods, dyes, or preservatives or trying to get breast-feeding What should I watch for while using this medicine? Visit your doctor or health childcare aide for regular checks on your progress. You will need to have a blood test called a PT/INR regularly. The PT/INR blood test is done to make sure you are getting the right dose of this medicine. It is important to not miss your appointment for the blood tests. When you first start taking this medicine, these tests are done often. Once the correct dose is determined and you take your medicine properly, these tests can be done less often. Notify your doctor or health childcare aide and seek emergency treatment if you develop breathing problems; changes in vision; chest pain; severe, sudden headache; pain, swelling, warmth in the leg; trouble speaking; sudden numbness or weakness of the face, arm or leg. These can be signs that your condition has gotten worse. While you are taking this medicine, carry an identification card with your name, the name and dose of medicine(s) being used, and the name and phone number of your doctor or health childcare aide or person to contact in an emergency. Do not start taking or stop taking any medicines or [id number] medicines except on the advice of your doctor or health childcare aide. You should discuss your diet with your doctor or health childcare aide. Do not make major changes in your diet. Vitamin K can affect how well this medicine works. Many foods contain vitamin K. It is important to eat a consistent amount of foods with vitamin K. Other foods with vitamin K that you should eat in consistent amounts are asparagus, basil, beef or pork liver, black eyed peas, broccoli, brussel sprouts, cabbage, chickpeas, cucumber with peel, green onions, green tea, okra, parsley, peas, thyme, and green leafy vegetables like beet greens, kyle greens, endive, kale, mustard greens, spinach, turnip greens, watercress, or certain lettuces like green leaf or brooke. This medicine can cause defects or bleeding in an unborn child. Women of childbearing age should use effective control while taking this medicine. If a woman becomes while taking this medicine, she should discuss the potential risks and her options with her health childcare aide. Avoid sports and activities that might cause injury while you are using this medicine. Severe falls or injuries can cause unseen bleeding. Be careful when using sharp tools or knives. Consider using an electric razor. Take special care brushing or flossing your teeth. Report any injuries, bruising, or red spots on the skin to your doctor or health childcare aide. If you have an illness that causes vomiting, diarrhea, or fever for more than a few days, contact your doctor. Also check with your doctor if you are unable to eat for several days. These problems can change the effect of this medicine. Even after you stop taking this medicine, it takes several days before your body recovers its normal ability to clot blood. Ask your doctor or health childcare aide how long you need to be careful. If you are going to have surgery or dental work, tell your doctor or health childcare aide that you have been taking this medicine. You have been given the following additional information: DVT Hydrocodone Bitartrate, Acetaminophen Oral tablet Enoxaparin Sodium (Porcine) Solution for injection Warfarin Sodium Oral tablet No driving or operating machinery while taking medication. Sedative medication was given during your visit. (Electronically signed by Carson Baires MD 11/19/2016 21:59)
--- NOTE | 2016-11-19 22:00 | ED MED RECONCILIATION SUMMARY ---
Patient: VALENTIN DOMINIQUE JR Medication Reconciliation Report [facility] VisitID: [id number] [place] [address] 31y, M Registration Date/Time: 11/19/2016 Weight: 117.9 kg Height/Length: 72 in. BMI: 35.3 ALLERGIES: Dilaudid, Penicillins The patient's Home Medications are listed below: NONE. The source(s) of the original Home Medication information: Not obtained. The following Medications were given to the patient in the Emergency Department: Ultram [PO] PO 100 mg, administered: 11/19/2016 6:24:00 PM The following Medications were prescribed to the patient: Hydrocodone/APAP 5mg / 325mg: take 1-2 orally every 6 hours as needed for pain. Dispense ten (10). No refill. -- Carson Baires MD Lovenox 120 mg SQ. Administer every 12 hours for 5 days. Dispense nine (9) pre-filled syringes. No refills. -- Carson Baires MD Coumadin 5 mg: take 1 tablet orally every 24 hours. Dispense five (5). No refills. Substitution is permissible. -- Carson Baires MD
--- NOTE | 2016-11-19 22:00 | ED MED RECONCILIATION SUMMARY ---
Patient: VALENTIN DOMINIQUE JR Medication Reconciliation Report [facility] VisitID: [id number] [place] [address] 31y, M Registration Date/Time: 11/19/2016 Weight: 117.9 kg Height/Length: 72 in. BMI: 35.3 ALLERGIES: Dilaudid, Penicillins The patient's Home Medications are listed below: NONE. The source(s) of the original Home Medication information: Not obtained. The following Medications were given to the patient in the Emergency Department: Ultram [PO] PO 100 mg, administered: 11/19/2016 6:24:00 PM The following Medications were prescribed to the patient: Hydrocodone/APAP 5mg / 325mg: take 1-2 orally every 6 hours as needed for pain. Dispense ten (10). No refill. -- Carson Baires MD Lovenox 120 mg SQ. Administer every 12 hours for 5 days. Dispense nine (9) pre-filled syringes. No refills. -- Carson Baires MD Coumadin 5 mg: take 1 tablet orally every 24 hours. Dispense five (5). No refills. Substitution is permissible. -- Carson Baires MD
--- NOTE | 2016-11-19 22:00 | ED DISCHARGE INSTRUCTIONS ---
Patient: VALENTIN DOMINIQUE JR General Instructions [facility] VisitID: [id number] [place] [address] 31y, M Registration Date/Time: 11/19/2016 Acute and chronic deep venous thrombosis of the right lower extremity and left lower extremity. INSTRUCTIONS No driving or operating machinery while taking medication. Sedative medication was given during your visit. (You should receive a call from Dr. Perez's office on Monday to schedule follow-up. If you have not heard from them by early afternoon, please call them at the following number: Hung Perez MD [facility] [phone]). Warnings: Further evaluation is necessary. GENERAL WARNINGS: Return or contact your physician immediately if your condition worsens or changes unexpectedly, if not improving as expected, or if other problems arise. Prescription Medications: Hydrocodone/APAP 5mg / 325mg: take 1-2 orally every 6 hours as needed for pain. Dispense ten (10). No refill. Lovenox 120 mg SQ. Administer every 12 hours for 5 days. Dispense nine (9) pre-filled syringes. No refills. Coumadin 5 mg: take 1 tablet orally every 24 hours. Dispense five (5). No refills. Substitution is permissible. Follow-up: [facility] Understanding of the discharge instructions verbalized by patient. ADDITIONAL INFORMATION Deep Vein Thrombosis Deep Vein Thrombosis (DVT) means there is a blood clot in a deep vein of the leg. This may cause redness, swelling, warmth and pain of the leg. If the blood clot grows larger, a piece may break off and go to the lungs (pulmonary embolus) or to the brain (stroke). Factors that increase risk of a DVT include: overweight, smoking, use of estrogen replacement therapy. Prolonged periods without movement (such as long distance travel, wearing a fracture cast, and prolonged bed rest after surgery or during an illness) also increases the risk of a DVT. Home Care: Stay off the affected leg as much as possible during the next week. When sitting or lying down, keep the leg elevated. Compression stockings may be advised to improve blood flow in the lower legs. When resting, move your ankles, toes and knees frequently to stimulate blood flow. You will be prescribed an anti-coagulant medicine (pills or shots). Take it exactly as directed. Follow Up with your doctor as advised. NOTE: A radiologist will review any X-rays that were taken. We will notify you of any new findings that may affect your care. Get Prompt Medical Attention if any of the following occur: Shortness of breath or painful breathing Chest pain, repeated cough or coughing up blood Fever of 100.4F (38C) or higher, or as directed by your healthcare provider Increasing swelling or increasing pain in the leg Spreading redness Unexpected bleeding (nose, gums, cuts, urinary tract, vagina, rectum) Hydrocodone Bitartrate, Acetaminophen Oral tablet What is this medicine? ACETAMINOPHEN; HYDROCODONE (a set a KATERINA indra fen; katrin droe KOE done) is a pain reliever. It is used to treat mild to moderate pain. How should I use this medicine? Take this medicine by mouth. Swallow it with a full glass of water. Follow the directions on the prescription label. If the medicine upsets your stomach, take the medicine with food or milk. Do not take more than you are told to take. Talk to your prosthetic aides teacher regarding the use of this medicine in children. This medicine is not approved for use in children. What side effects may I notice from receiving this medicine? Side effects that you should report to your doctor or health health and social care teacher as soon as possible: allergic reactions like skin rash, itching or hives, swelling of the face, lips, or tongue breathing problems confusion feeling faint or lightheaded, falls stomach pain yellowing of the eyes or skin Side effects that usually do not require medical attention (report to your doctor or health health and social care teacher if they continue or are bothersome): nausea, vomiting stomach upset What may interact with this medicine? alcohol antihistamines isoniazid medicines for depression, anxiety, or psychotic disturbances medicines for sleep muscle relaxants naltrexone narcotic medicines (opiates) for pain phenobarbital ritonavir tramadol What if I miss a dose? If you miss a dose, take it as soon as you can. If it is almost time for your next dose, take only that dose. Do not take double or extra doses. Where should I keep my medicine? Keep out of the reach of children. This medicine can be abused. Keep your medicine in a safe place to protect it from theft. Do not share this medicine with anyone. Selling or giving away this medicine is dangerous and against the law. Store at room temperature between 15 and 30 degrees C (59 and 86 degrees F). Protect from light. Keep container tightly closed. Throw away any unused medicine after the expiration date. Discard unused medicine and used packaging carefully. Pets and children can be harmed if they find used or lost packages. What should I tell my health care provider before I take this medicine? They need to know if you have any of these conditions: brain tumor Crohn's disease, inflammatory bowel disease, or ulcerative colitis drink more than 3 alcohol-containing drinks per day drug abuse or addiction head injury heart or circulation problems kidney disease or problems going to the bathroom liver disease lung disease, asthma, or breathing problems an unusual or allergic reaction to acetaminophen, hydrocodone, other opioid analgesics, other medicines, foods, dyes, or preservatives or trying to get breast-feeding What should I watch for while using this medicine? Tell your doctor or health health and social care teacher if your pain does not go away, if it gets worse, or if you have new or a different type of pain. You may develop tolerance to the medicine. Tolerance means that you will need a higher dose of the medicine for pain relief. Tolerance is normal and is expected if you take the medicine for a long time. Do not suddenly stop taking your medicine because you may develop a severe reaction. Your body becomes used to the medicine. This does NOT mean you are addicted. Addiction is a behavior related to getting and using a drug for a non-medical reason. If you have pain, you have a medical reason to take pain medicine. Your doctor will tell you how much medicine to take. If your doctor wants you to stop the medicine, the dose will be slowly lowered over time to avoid any side effects. You may get drowsy or dizzy when you first start taking the medicine or change doses. Do not drive, use machinery, or do anything that may be dangerous until you know how the medicine affects you. Stand or sit up slowly. There are different types of narcotic medicines (opiates) for pain. If you take more than one type at the same time, you may have more side effects. Give your health care provider a list of all medicines you use. Your doctor will tell you how much medicine to take. Do not take more medicine than directed. Call emergency for help if you have problems breathing. The medicine will cause constipation. Try to have a bowel movement at least every 2 to 3 days. If you do not have a bowel movement for 3 days, call your doctor or health health and social care teacher. Too much acetaminophen can be very dangerous. Do not take Tylenol (acetaminophen) or medicines that contain acetaminophen with this medicine. Many non-prescription medicines contain acetaminophen. Always read the labels carefully. Enoxaparin Sodium (Porcine) Solution for injection What is this medicine? ENOXAPARIN (ee nox a PA rin) is used after knee, hip, or abdominal surgeries to prevent blood clotting. It is also used to treat existing blood clots in the lungs or in the veins. How should I use this medicine? This medicine is for injection under the skin. It is usually given by a health-health and social care teacher. You or a family member may be trained on how to give the injections. If you are to give yourself injections, make sure you understand how to use the syringe, measure the dose if necessary, and give the injection. To avoid bruising, do not rub the site where this medicine has been injected. Do not take your medicine more often than directed. Do not stop taking except on the advice of your doctor or health health and social care teacher. Make sure you receive a puncture-resistant container to dispose of the needles and syringes once you have finished with them. Do not reuse these items. Return the container to your doctor or health health and social care teacher for proper disposal. Talk to your prosthetic aides teacher regarding the use of this medicine in children. Special care may be needed. What side effects may I notice from receiving this medicine? Side effects that you should report to your doctor or health health and social care teacher as soon as possible: allergic reactions like skin rash, itching or hives, swelling of the face, lips, or tongue dark urine feeling faint or lightheaded, falls fever heavy menstrual bleeding signs and symptoms of bleeding such as bloody or black, tarry stools; red or dark-brown urine; spitting up blood or brown material that looks like coffee grounds; red spots on the skin; unusual bruising or bleeding from the eye, gums, or nose signs and symptoms of a blood clot such as breathing problems; changes in vision; chest pain; severe, sudden headache; pain, swelling, warmth in the leg; trouble speaking; sudden numbness or weakness of the face, arm, or leg Side effects that usually do not require medical attention (report to your doctor or health health and social care teacher if they continue or are bothersome): pain or irritation at the injection site What may interact with this medicine? Do not take this medicine with any of the following medications: -aspirin and aspirin-like medicines -heparin -mifepristone -palifermin -warfarin This medicine may also interact with the following medications: -cilostazol -clopidogrel -dipyridamole -NSAIDs, medicines for pain and inflammation, like ibuprofen or naproxen -sulfinpyrazone -ticlopidine What if I miss a dose? If you miss a dose, take it as soon as you can. If it is almost time for your next dose, take only that dose. Do not take double or extra doses. Where should I keep my medicine? Keep out of the reach of children. Store at room temperature between 15 and 30 degrees C (59 and 86 degrees F). Do not freeze. If your injections have been specially prepared, you may need to store them in the refrigerator. Ask your pharmacist. Throw away any unused medicine after the expiration date. What should I tell my health care provider before I take this medicine? They need to know if you have any of these conditions: bleeding disorders, hemorrhage, or hemophilia infection of the heart or heart valves kidney or liver disease previous stroke prosthetic heart valve recent surgery or delivery of a baby ulcer in the stomach or intestine, diverticulitis, or other bowel disease an unusual or allergic reaction to enoxaparin, heparin, pork or pork products, other medicines, foods, dyes, or preservatives or trying to get breast-feeding What should I watch for while using this medicine? Visit your doctor or health health and social care teacher for regular checks on your progress. Your condition will be monitored carefully while you are receiving this medicine. If you are going to have surgery, tell your doctor or health health and social care teacher that you are taking this medicine. Do not stop taking this medicine without first talking to your doctor. Be sure to refill your prescription before you run out of medicine. Avoid sports and activities that might cause injury while you are using this medicine. Severe falls or injuries can cause unseen bleeding. Be careful when using sharp tools or knives. Consider using an electric razor. Take special care brushing or flossing your teeth. Report any injuries, bruising, or red spots on the skin to your doctor or health health and social care teacher. Warfarin Sodium Oral tablet What is this medicine? WARFARIN (WAR far in) is an anticoagulant. It is used to treat or prevent clots in the veins, arteries, lungs, or heart. How should I use this medicine? Take this medicine by mouth with a glass of water. Follow the directions on the prescription label. You can take this medicine with or without food. Take your medicine at the same time each day. Do not take it more often than directed. Do not stop taking except on your doctor's advice. Stopping this medicine may increase your risk of a blood clot. Be sure to refill your prescription before you run out of medicine. If your doctor or healthcare professional calls to change your dose, write down the dose and any other instructions. Always read the dose and instructions back to him or her to make sure you understand them. Tell your doctor or healthcare professional what strength of tablets you have on hand. Ask how many tablets you should take to equal your new dose. Write the date on the new instructions and keep them near your medicine. If you are told to stop taking your medicine until your next blood test, call your doctor or healthcare professional if you do not hear anything within 24 hours of the test to find out your new dose or when to restart your prior dose. A special MedGuide will be given to you by the pharmacist with each prescription and refill. Be sure to read this information carefully each time. Talk to your prosthetic aides teacher regarding the use of this medicine in children. Special care may be needed. What side effects may I notice from receiving this medicine? Side effects that you should report to your doctor or health health and social care teacher as soon as possible: back pain chills dizziness fever heavy menstrual bleeding or vaginal bleeding painful, blue, or purple toes painful, prolonged erection signs and symptoms of bleeding such as bloody or black, tarry stools; red or dark-brown urine; spitting up blood or brown material that looks like coffee grounds; red spots on the skin; unusual bruising or bleeding from the eye, gums, or nose-skin rash, itching or skin damage stomach pain unusually weak or tired yellowing of skin or eyes Side effects that usually do not require medical attention (report to your doctor or health health and social care teacher if they continue or are bothersome): diarrhea hair loss What may interact with this medicine? Do not take this medicine with any of the following medications: agents that prevent or dissolve blood clots aspirin or other salicylates danshen dextrothyroxine mifepristone [place]'s Wort red yeast rice This medicine may also interact with the following medications: acetaminophen agents that lower cholesterol alcohol allopurinol amiodarone antibiotics or medicines for treating bacterial, fungal or viral infections azathioprine barbiturate medicines for inducing sleep or treating seizures certain medicines for diabetes certain medicines for heart rhythm problems certain medicines for high blood pressure chloral hydrate cisapride disulfiram female hormones, including contraceptive or control pills general anesthetics herbal or dietary products like garlic, ginkgo, ginseng, green tea, or kava kava influenza virus vaccine male hormones medicines for mental depression or psychosis medicines for some types of cancer medicines for stomach problems methylphenidate NSAIDs, medicines for pain and inflammation, like ibuprofen or naproxen propoxyphene quinidine, quinine raloxifene seizure or epilepsy medicine like carbamazepine, phenytoin, and valproic acid steroids like cortisone and prednisone tamoxifen thyroid medicine tramadol vitamin c, vitamin e, and vitamin K zafirlukast zileuton What if I miss a dose? It is important not to miss a dose. If you miss a dose, call your healthcare provider. Take the dose as soon as possible on the same day. If it is almost time for your next dose, take only that dose. Do not take double or extra doses to make up for a missed dose. Where should I keep my medicine? Keep out of the reach of children. Store at room temperature between 15 and 30 degrees C (59 and 86 degrees F). Protect from light. Throw away any unused medicine after the expiration date. Do not flush down the toilet. What should I tell my health care provider before I take this medicine? They need to know if you have any of these conditions: alcoholism anemia bleeding disorders cancer diabetes heart disease high blood pressure history of bleeding in the gastrointestinal tract history of stroke or other brain injury or disease kidney or liver disease protein C deficiency protein S deficiency psychosis or dementia recent injury, recent or planned surgery or procedure an unusual or allergic reaction to warfarin, other medicines, foods, dyes, or preservatives or trying to get breast-feeding What should I watch for while using this medicine? Visit your doctor or health health and social care teacher for regular checks on your progress. You will need to have a blood test called a PT/INR regularly. The PT/INR blood test is done to make sure you are getting the right dose of this medicine. It is important to not miss your appointment for the blood tests. When you first start taking this medicine, these tests are done often. Once the correct dose is determined and you take your medicine properly, these tests can be done less often. Notify your doctor or health health and social care teacher and seek emergency treatment if you develop breathing problems; changes in vision; chest pain; severe, sudden headache; pain, swelling, warmth in the leg; trouble speaking; sudden numbness or weakness of the face, arm or leg. These can be signs that your condition has gotten worse. While you are taking this medicine, carry an identification card with your name, the name and dose of medicine(s) being used, and the name and phone number of your doctor or health health and social care teacher or person to contact in an emergency. Do not start taking or stop taking any medicines or [id number]-[id number] medicines except on the advice of your doctor or health health and social care teacher. You should discuss your diet with your doctor or health health and social care teacher. Do not make major changes in your diet. Vitamin K can affect how well this medicine works. Many foods contain vitamin K. It is important to eat a consistent amount of foods with vitamin K. Other foods with vitamin K that you should eat in consistent amounts are asparagus, basil, beef or pork liver, black eyed peas, broccoli, brussel sprouts, cabbage, chickpeas, cucumber with peel, green onions, green tea, okra, parsley, peas, thyme, and green leafy vegetables like beet greens, kyle greens, endive, kale, mustard greens, spinach, turnip greens, watercress, or certain lettuces like green leaf or brooke. This medicine can cause defects or bleeding in an unborn child. Women of childbearing age should use effective control while taking this medicine. If a woman becomes while taking this medicine, she should discuss the potential risks and her options with her health health and social care teacher. Avoid sports and activities that might cause injury while you are using this medicine. Severe falls or injuries can cause unseen bleeding. Be careful when using sharp tools or knives. Consider using an electric razor. Take special care brushing or flossing your teeth. Report any injuries, bruising, or red spots on the skin to your doctor or health health and social care teacher. If you have an illness that causes vomiting, diarrhea, or fever for more than a few days, contact your doctor. Also check with your doctor if you are unable to eat for several days. These problems can change the effect of this medicine. Even after you stop taking this medicine, it takes several days before your body recovers its normal ability to clot blood. Ask your doctor or health health and social care teacher how long you need to be careful. If you are going to have surgery or dental work, tell your doctor or health health and social care teacher that you have been taking this medicine. You have been given the following additional information: DVT Hydrocodone Bitartrate, Acetaminophen Oral tablet Enoxaparin Sodium (Porcine) Solution for injection Warfarin Sodium Oral tablet No driving or operating machinery while taking medication. Sedative medication was given during your visit. (Electronically signed by Carson Baires MD 11/19/2016 21:59)
--- NOTE | 2016-11-19 22:00 | ED MAR SUMMARY ---
..... Medication Administration Record [facility] [address] [place] [address] Patient: VALENTIN DOMINIQUE Visit ID: [id number] 31y, M Weight: 117.9 kg Height/Length: 72 in BMI: 35.3 ALLERGIES: Dilaudid, Penicillins Given 18:24 11/19/2016 Belen Prieto RWyatt Medication Administered: ULTRAM [PO] (TRAMADOL HCL), Dose: 100 mg Tablets PO. Medication Ordered: Ultram PO 100 mg (NOW).
== END 2016-11-19 20:05 | disposition home or self-care (01) ==
LOC: ED SRH 16:49
DX: I82.403 Acute embolism and thrombosis of unspecified deep veins of lower extremity, bilateral (principal); I82.503 Chronic embolism and thrombosis of unspecified deep veins of lower extremity, bilateral; D68.51 Activated protein C resistance; J45.909 Unspecified asthma, uncomplicated; F17.210 Nicotine dependence, cigarettes, uncomplicated; Z88.0 Allergy status to penicillin; Z88.5 Allergy status to narcotic agent
CPT/HCPCS: 90100; 92235; 92530; 94001; 94060; 95059